=== PATIENT | female | born 1975 ===

== ENCOUNTER 2023-07-16 09:39 | Day surgery (SDC) | payer OTHER ==
[~2023-07-16] VITALS: Ht 157.5 cm; Wt 100.7 kg
[~2023-07-16 09:39] MED LIST: JANUMET XR 50-1 EAC1 PO; ZESTRIL5 MG PO
== END 2023-07-16 23:50 | disposition home or self-care (01) ==
LOC: CIR.AMB 09:39
PROVIDERS: ATTEND Obstetrics & Gynecology
DX: N93.8 Other specified abnormal uterine and vaginal bleeding (principal); T83.89XA Other specified complication of genitourinary prosthetic devices, implants and grafts, initial encounter; Z20.822 Contact with and (suspected) exposure to COVID-19; Z88.6 Allergy status to analgesic agent